=== PATIENT | female | born 2000 | race Caucasian/White ===

== ENCOUNTER 2020-10-31 00:09 | Emergency (ER) | payer BC ==
[2020-10-31 01:47] VITALS: BP 110/65; PULSE 77; RESP 16; TEMP 98.8
--- NOTE | 2020-10-31 01:48 | ED ---
Head Injury HPI - General Chief complaint: Head Injury Stated complaint: Head Injury Time Seen by Provider: 10/31/20 00:28 Source: patient Mode of arrival: ambulatory Limitations: no limitations - History of Present Illness Initial comments: Patient is a 20-year-old female presenting to the emergency department with a laceration to the top of her head. Patient states she went to jump and bending to top of her head on the corner of the ceiling. She denies loss of consciousness. This happened about 2 hours prior to arrival. She denies any nausea or vomiting, she only has a very small headache. She is also complaining of some mild upper back soreness after hitting the stairs. She denies any dizziness or lightheadedness. She denies being . She is up-to-date with her tetanus. She has no further complaints at this time. - Related Data Home Medications Medication Instructions Recorded Confirmed No Known Home Medications 10/31/20 10/31/20 Allergies/Adverse reactions: Allergies Allergy/AdvReac Type Severity Reaction Status Date / Time No Known Allergies Allergy Verified 10/31/20 00:18 Review of Systems ROS Statement: Those systems with pertinent positive or pertinent negative responses have been documented in the HPI. ROS Other: All systems not noted in ROS Statement are negative. Past Medical History Past Medical History: No Reported History History of Any Multi-Drug Resistant Organisms: None Reported Past Surgical History: Tonsillectomy Past Psychological History: No Psychological Hx Reported Smoking Status: Never smoker Past Alcohol Use History: Rare Past Drug Use History: None Reported General Exam - General Exam Comments Initial Comments: GENERAL: Patient is well-developed and well-nourished. Patient is nontoxic and in no acute distress. HEAD: Atraumatic, normocephalic. There are no hematomas, no signs of fracture. EYES: Pupils equal round and reactive to light, extraocular movements intact, sclera anicteric, conjunctiva are normal. Eyelids were unremarkable. ENT: TMs normal, nares patent, oropharynx clear without exudates. Moist mucous me mbranes. NECK: Normal range of motion, supple without lymphadenopathy or JVD. There is no midline tenderness. LUNGS: Unlabored respirations. Breath sounds clear to auscultation bilaterally and eq ual. No wheezes rales or rhonchi. HEART: Regular rate and rhythm without murmurs, rubs or gallops. ABDOMEN: Soft, nontender, normoactive bowel sounds. No guarding, no rebound. No masses appreciated. : Deferred MUSCULOSKELETAL: Normal extremities with adequate strength and normal range of motion, no pitting or edema. No clubbing or cyanosis. She has some mild soreness with palpation of the left upper trapezius area. NEUROLOGICAL: Patient is alert and oriented x 3. Motor and sensory are also intact. Cranial nerves II through XII grossly intact. Symmetrical smile. Normal speech, normal gait. PSYCH: Normal mood, normal affect. SKIN: Warm, Dry, normal turgor, no rashes. Patient has a 1.5 cm laceration to the top of her scalp. Bleeding is controlled. Limitations: no limitations Course Vital Signs 10/31/20 10/31/20 00:13 01:41 Temperature 98 F 98.8 F Pulse Rate 69 77 Respiratory 18 16 Rate Blood Pressure 106/67 110/65 O2 Sat by Pulse 99 99 Oximetry Procedures - Laceration Laceration #1 Consent Obtained: verbal consent Indication: laceration Site: scalp Size (cm): 0 (1.5cm) Description: linear Depth: simple, single layer Patient Tolerated Procedure: well Additional Comments: 3 lacey were used to close the wound. She tolerated procedure well. Medical Decision Making - Medical Decision Making Patient is a 20-year-old female here with a 1.5 cm laceration to top of her scalp after she jumped hitting the top of her head on a ceiling corner. There was no loss of consciousness, rest the patient's exam is normal. No acute neuro deficits. She does have a mild headache, we discussed possibility of a mild concussion. Patient's wound was cleaned, closed with 3 lacey. She tolerated procedure well. She can take Tylenol or Motrin for any discomfort. She was lacey removed in 7-10 days. Patient is going on vacation soon, recommended not to getting the laceration under any water, lotions or pools. She is in agreement with this plan of care and she is stable for discharge. Case discussed with Dr. Guerrero. Disposition Clinical Impression: Laceration of scalp, Mild concussion Disposition: HOME SELF-CARE Condition: Stable Instructions (If sedation given, give patient instructions): Staple Care (ED) Additional Instructions: Please return to the Emergency Department if symptoms worsen or any other concerns. Lacey need to removed and 7-10 days. Keep area clean and dry. No swimming in lakes, ponds, oceans. May take Tylenol or Motrin for discomfort. Is patient prescribed a controlled substance at d/c from ED?: No Referrals: Ayden Srinivasan MD [Primary Care Provider] - 1-2 days Time of Disposition: 01:48
== END 2020-10-31 01:52 | disposition home or self-care (01) ==
LOC: SUPCPDRO 00:09 → EC 00:09
DX: S06.0X0A Concussion without loss of consciousness, initial encounter (principal); S01.01XA Laceration without foreign body of scalp, initial encounter; W22.8XXA Striking against or struck by other objects, initial encounter
CPT/HCPCS: 12001; 99283